=== PATIENT | female | born 1980 | race Caucasian/White ===

== ENCOUNTER 2018-09-12 11:59 | Inpatient (IN) | payer MEDICAID ==
[~2018-09-12] VITALS: Ht 157.5 cm; Wt 67.8 kg
[~2018-09-12 11:59] MED LIST: PREN1TAB17 PO
[2018-09-12 12:43] VITALS: BP 106/70; PULSE 94; RESP 18
[2018-09-12] MEDS ORDERED: OXYTOCIN 30 UNITS/LR 500 ML IV SCH ×2 (13:00)
[2018-09-12] MEDS ORDERED: OXYCODONE/ASPIRIN (4.88/325) TAB PO PRN (13:00)
[2018-09-12] MEDS ORDERED: OXYTOCIN 30 UNITS/LR 500 ML IV PRN (13:00)
[2018-09-12] MEDS ORDERED: METHYLERGONOVINE 0.2 MG INJ IM PRN (13:00)
[2018-09-12] MEDS ORDERED: BUTORPHANOL 2 MG INJ IV PRN (13:00)
[2018-09-12] MEDS ORDERED: MISOPROSTOL 200 MCG TAB PR PRN (13:00)
[2018-09-12] MEDS ORDERED: AMPICILLIN 2 GM/NS (PMX) 100 ML IV ONE ×2 (13:00→23:30)
[2018-09-12] MEDS ORDERED: LIDOCAINE 1% (MPF) 30 ML INJ INJ PRN (13:00)
[2018-09-12] MEDS ORDERED: BUTORPHANOL 1 MG INJ IV PRN (13:00)
[2018-09-12] MEDS ORDERED: CARBOPROST 250 MCG INJ IM PRN (13:00)
[2018-09-12] MEDS: LACTATED RINGER'S 1,000 ML IV SCH ×2 (14:32→22:15)
[2018-09-12] MEDS ORDERED: AMPICILLIN 1 GM/NS (PMX) 50 ML IV SCH (17:00)
--- NOTE | 2018-09-12 19:35 | PREOPHP ---
DATE OF ADMISSION: 09/12/2018 HISTORY OF PRESENT ILLNESS: Ms. Candelaria Walker is a 38-year-old 5, para 4, EDC 10/05/2018, intrauterine at 36 weeks and 5 days gestational age, was sent from clinic today for evaluation of cholestasis of . The patient has been complaining of generalized itching for the past 1 week with bile acid of 17.9. Her care took place at [facility]. PAST MEDICAL HISTORY: None. MEDICATIONS: vitamins. PAST SURGICAL HISTORY: None. OBSTETRICAL HISTORY: x4 vaginal delivery. GYNECOLOGIC HISTORY: 13, regular 3 to 4 days. Denies any sexually transmitted disease. Sexually active with 1 partner. SOCIAL HISTORY: Denies any smoking, drugs or alcohol. FAMILY HISTORY: None. REVIEW OF SYSTEMS: All within normal except history of present illness. PHYSICAL EXAMINATION: HEENT: Within normal. LUNGS: CTA bilateral. CARDIOVASCULAR: S1, S2. Regular rate, rhythm. ABDOMEN: Gravid, nontender. Negative CVA bilateral. EXTREMITIES: Negative. No calf tenderness. PELVIC: Vaginal exam is 2 cm dilated, 30% effaced, -3 station. heart tracing category 1. [place]: Occasional contractions. Estimated weight is 2466 grams. ASSESSMENT: Intrauterine at 36 weeks and 5 days' gestational age with cholestasis of . PLAN: After discussing the above evaluation with Dr. Nails, agrees to the delivery the patient. recommends to keep until 37 weeks and deliver, unless she has elevated liver enzymes fu liver enzymes Dictated By: ADRYAN HURLEY/YAJAIRA Conf#: [id number] DID#: [id number] MTDHill
[2018-09-12] MEDS: URSODIOL 300 MG CAP PO SCH (21:25)
[2018-09-12] MEDS: MISOPROSTOL 50 MCG CAPSULE PO PRN (22:40)
[2018-09-12] MEDS ORDERED: FAMOTIDINE 20 MG TAB PO PRN (23:30)
[2018-09-13] MEDS ORDERED: DEXTROSE 5%-LR 1,000 ML IV SCH (02:58)
[2018-09-13] MEDS: AMPICILLIN 1 GM/NS (PMX) 50 ML IV SCH ×4 (03:36→16:00)
[2018-09-13] MEDS: MISOPROSTOL 50 MCG CAPSULE PO PRN (04:27)
[2018-09-13] MEDS: LACTATED RINGER'S 1,000 ML IV SCH ×2 (06:46→09:42)
[2018-09-13] MEDS ORDERED: BETAMET NA PHOS/AC(6 MG/ML) 2 ML INJ SYG IM SCH (09:00)
[2018-09-13] MEDS: URSODIOL 300 MG CAP PO SCH ×2 (09:13→12:56)
[2018-09-13] MEDS ORDERED: OXYTOCIN 30 UNITS/LR 500 ML IV PRN ×3 (10:30→17:00)
--- NOTE | 2018-09-13 16:35 | LDN ---
Date/Time of Note Date/Time of Note DATE: 09/13/18 TIME: 16:31 Delivery Summary 09/13/2018 AROM done prer request of Primary OB attending who manged the patient. Clear fluid noted. Patient shortly after had Precipitous delivery called emergently to the Room due to significant maternal pushing, Baby was out by the time arrived and noted to be on the bed and nurses were suctioning the mouth and nose. Cord was clamped and cut. Baby was transferred to the warmer. Placenta delivered complete. Placenta evaluated and appeared to be intact. Fundus was firm at the end of the delivery. EBL 200 cc. Perineum evaluated no evidence of perineal laceration noted. Placenta was sent to pathology Weeks of Gestation 36 weeks and 6 days Placenta Delivered: Spontaneously Meconium: none Episiotomy: No Indication for episiotomy N/A Perineal laceration: 0 Laceration repair: No laceration noted Anesthesia type: Epidural Estimated blood loss: 200 Sponge & Needle done & correct: Yes All needle counts correct: Yes Any foreign bodies felt in the: No Delivery Information Sex Infant Sex: female Apgars 1 Minute: 9 5 Minute: 9 Suctioning Nose & mouth suctioned at francia: Yes Delee suction performed: Yes Umbilical Cord Umbilical cord with: 3 Vessels Cord presentations: no nuchal cord Cord Blood was obtained: Yes OLLIE CAPUTO MD Sep 13, 2018 16:35
[2018-09-13] MEDS ORDERED: OXYTOCIN 30 UNITS/LR 500 ML IV SCH ×2 (16:40→16:50)
--- NOTE | 2018-09-13 16:40 | PN ---
Date/Time of Note Date/Time of Note DATE: 09/13/18 TIME: 16:36 OB Subjective Subjective Subjective Late entry note. I was called at 8 AM to evaluate the patient requested by primary OB attending who was away due to vaginal bleeding. Attended to the patient bedside. Noted to have 150 cc q. BL on the chalks. Patient comfortable denies any symptoms. Patient undergoing induction of labor due to cholestasis of . Tracing reviewed and contractions every 1 minute noted on the monitor questionable for possible abruption. OB Objective Objective Objective General appearance: Alert and oriented x4 does not appear to be in any acute distress Abdomen: Soft, fundus consistent with gestational age Sterile vaginal examination: 2 cm/70/-3\dark old blood noted small amount About 120 cc of blood noted and the pads collected by RN previously Tracing: Category 1\ OB Assessment/Plan Other Assessment: IUP at 36 weeks and 6 days Undergoing induction due to cholestasis of , In early labor Vaginal bleeding, rule out abruption, . Tracing reassuring We will continue to monitor closely Due to gestational age less than 37 weeks and requirement for induction due to congestive , will start steroid while induction is in process If undelivered consider giving the second dose after 12 hours Continue expectant management Follow-up in labor curve Plan of care discussed with perinatologist, Jessica Marte who agreed with the plan. OLLIE CAPUTO MD Sep 13, 2018 16:39
--- NOTE | 2018-09-13 16:49 | QN ---
Documentation Comment delivery note a viable female 9/9 weigth pending placenta via cct intact no laceration ebl 200 ml no complication count correct ADRYAN MAYES MD Sep 13, 2018 16:49
[2018-09-13] MEDS ORDERED: HYDROCODONE/APAP (5/325) TAB PO PRN (17:00)
[2018-09-13] MEDS ORDERED: WITCH HAZEL/GLYCERIN PAD PR PRN ×2 (17:00)
[2018-09-13] MEDS ORDERED: CARBOPROST 250 MCG INJ IM PRN ×2 (17:00)
[2018-09-13] MEDS ORDERED: ONDANSETRON 4 MG INJ IV PRN ×2 (17:00)
[2018-09-13] MEDS ORDERED: METHYLERGONOVINE 0.2 MG TAB PO PRN (17:00)
[2018-09-13] MEDS ORDERED: LANOLIN HPA 1 PKT TOP PRN ×2 (17:00)
[2018-09-13] MEDS ORDERED: ZOLPIDEM 5 MG TAB PO PRN (17:00)
[2018-09-13] MEDS ORDERED: NACL 0.9% 3 ML SYG IV SCH ×2 (17:00)
[2018-09-13] MEDS ORDERED: DIPHENHYDRAMINE 25 MG CAP PO PRN (17:00)
[2018-09-13] MEDS ORDERED: BENZOCAINE 20% 56 ML SPRAY TOP PRN (17:00)
[2018-09-13] MEDS ORDERED: MISOPROSTOL 200 MCG TAB PR PRN ×2 (17:00)
[2018-09-13] MEDS ORDERED: METHYLERGONOVINE 0.2 MG INJ IM PRN ×2 (17:00)
[2018-09-13 18:40] VITALS: BP 110/58; PULSE 71; RESP 18
[2018-09-13 19:45] VITALS: BP 101/62; PULSE 62; RESP 18
[2018-09-13] MEDS: SENNA/DOCUSATE NA (8.6MG/50MG) TAB PO SCH (21:20)
[2018-09-14 04:38] VITALS: BP 99/67; PULSE 87; RESP 18
[2018-09-14 08:00] VITALS: BP 114/71; PULSE 69; RESP 18
[2018-09-14] MEDS: SENNA/DOCUSATE NA (8.6MG/50MG) TAB PO SCH ×2 (10:34→20:12)
--- NOTE | 2018-09-14 10:41 | PD.PPDC ---
CHOCOLATE DIPPER Discharge Instruction Condition [id number] Patient Condition: [id number] Good Diet Wenel6Ac Diet: Diyfq6c Resume Regular Diet Activity/Restrictions [id number] Activity: Yjgmr0s Normal Activity May Shower Fpadp6Lw Restrictions: Eodha1z No Exercising No Lifting No Driving No Sexual Activity Nothing in the Vagina No [place] No Tampons, douche Follow-up Follow-up with Physician: 3, Week/Weeks Return to clinic for [id number] OPTOMETRIC TECHNICIAN Instructions: [id number] Fever greater than 101 Chills Worsening abdominal pain Excessive Vaginal Bleeding More than 2 pads per hour Unable to tolerate diet [id number] OB Instructions: Rsmyt0l Breast Tenderness Depression Blurried Vision Headache Wophh6Mx Surgical Instructions: Btmpw4n Incisional Drainage Incisional Redness ADRYAN MAYES MD Sep 14, 2018 10:41
[2018-09-14 16:00] VITALS: BP 118/77; PULSE 74; RESP 18
[2018-09-14 19:30] VITALS: BP 115/77; PULSE 74; RESP 18
[2018-09-14] MEDS ORDERED: FAMOTIDINE 20 MG TAB PO SCH (21:00)
[2018-09-15 04:11] VITALS: BP 112/75; PULSE 73; RESP 18
[2018-09-15 08:00] VITALS: BP 105/81; PULSE 65; RESP 18
[2018-09-15] MEDS ORDERED: DIPHTH/TET/ACEL PERTUSS (ADULT) 0.5 ML VIAL IM* ONE (09:00)
[2018-09-15] MEDS ORDERED: MEASLES,MUMPS,RUBELLA VACCINE INJ SC* ONE (09:00)
[2018-09-15] MEDS ORDERED: VARICELLA VACCINE LIVE/PF 1,350 UNIT/0.5 ML ML SC* ONE (09:00)
[2018-09-15] MEDS: SENNA/DOCUSATE NA (8.6MG/50MG) TAB PO SCH (09:00)
--- NOTE | 2018-10-02 17:50 | DS ---
Date/Time of Note Date/Time of Note DATE: 10/02/18 TIME: 17:49 Obstetrical Discharge Record Final Diagnosis Final Diagnosis: delivered Other Final Diagnosis cholestasis of , ptl Vaginal Delivery Obstetrical Delivery: Spontaneous Complications Other (cholestasis of ) Condition on Discharge Physical Assessment Last Vitals: stable afebrile Voiding: Yes Bowel Movement: Yes Breast: Soft, non-tender, Filling Fundus: Firm Calf Tenderness: No Patient Condition: Fair ADRYAN MAYES MD Oct 02, 2018 17:50
== END 2018-09-15 14:20 | disposition home or self-care (01) | DRG 805 ==
LOC: OBT 11:59 → L-D 12:01 → OBT 12:13 → PP1 09-13 20:16
PROVIDERS: ADMIT Obstetrics & Gynecology; ATTEND Obstetrics & Gynecology
PROC: 4A1HXCZ Monitoring of Products of Conception, Cardiac Rate, External Approach (ICD-10-PCS; 2018-09-12)
PROC: 3E0P7GC Introduction of Other Therapeutic Substance into Female Reproductive, Via Natural or Artificial Opening (ICD-10-PCS; 2018-09-12)
PROC: 10E0XZZ Delivery of Products of Conception, External Approach (ICD-10-PCS; principal; 2018-09-13)
PROC: 10907ZC Drainage of Amniotic Fluid, Therapeutic from Products of Conception, Via Natural or Artificial Opening (ICD-10-PCS; 2018-09-13)
PROC: 3E0234Z Introduction of Serum, Toxoid and Vaccine into Muscle, Percutaneous Approach (ICD-10-PCS; 2018-09-14)
PROC: 3E0234Z Introduction of Serum, Toxoid and Vaccine into Muscle, Percutaneous Approach (ICD-10-PCS; 2018-09-15)
DX: O26.62 Liver and biliary tract disorders in childbirth (principal); K83.1 Obstruction of bile duct; Z37.0 Single live birth; Z3A.36 36 weeks gestation of pregnancy; Z23 Encounter for immunization
CPT/HCPCS: 76815; 76818; 80053; 85025; 85610; 85730; 86592; 86850; 86900; 86901; 88307; 90686; 90715; J0290; J0702; J2590; J7120; J7121

== ENCOUNTER 2018-12-30 10:15 | Day surgery (SDC) | payer MEDICAID ==
[2018-12-30] VITALS (13 sets, daily range): BP systolic 101–130; BP diastolic 65–78; PULSE 58–84; RESP 11–16; Ht 157.5 cm; Wt 63.5 kg
[~2018-12-30] VITALS: Ht 157.5 cm; Wt 63.5 kg
[~2018-12-30 10:15] MED LIST changes: +ACETAMINOPHEN 500 MG TAB PO ONE
[2018-12-30] MEDS ORDERED: BUPIVACAINE 0.25%/EPI (SDV) 30 ML INJ ONE (11:20)
--- NOTE | 2018-12-30 11:28 | PREAC ---
Date/Time of Note Date/Time of Note DATE: 12/30/18 TIME: 11:25 Anesthesia Eval and Record Evaluation Time Pre-Procedure Interview DATE: 12/30/18 TIME: 11:25 Age 38 Sex female NPO: 8 hrs Preoperative diagnosis elective sterilization Planned procedure Laparoscopic tubal ligation Past Medical History Past Medical History: None Surgery & Anesthesia Issues No known issue Meds Anticoagulation: No Beta Christian within 24 hr: No Reason Beta Christian not given: Pt. not on B-Christian Discontinued Reported Medications Vit-Iron Fumarate-FA ( Tablet) 1 Each Tablet, 1 TAB PO DAILY, TAB 07/14/14 Meds reviewed: Yes Allergies Coded Allergies: ibuprofen (Verified Allergy, Unknown, RASH, PRURITIS, 12/30/18) Allergies Reviewed: Yes Labs/Studies Labs Reviewed: Reviewed by anesthesiologist test: Negative Pre-procedure Exam Last vitals Vital Signs Date Temp Pulse Resp B/P (MAP) Pulse Ox O2 O2 Flow FiO2 Time Delivery Rate 12/30/18 97.5 63 16 130/78 97 Room Air 11:15 (95) Airway: Adequate mouth opening, Adequate thyromental dist Mallampati: Mallampati II Teeth: Normal Lung: Normal Heart: Normal ASA Physical Status ASA physical status: 1 Emergency: None Planned Anesthetic General/MAC: ETT Pre-operative Attestations Prior to commencing anesthesia and surgery, the patient was re-evaluated, there was verification of: *The patient's identity *The results of appropriate recent lab work and preoperative vital signs *The above evaluation not changing prior to induction *Anesthetic plan, risk benefits, alternative and complications discussed with patient/family; questions answered; patient/family understands, accepts and wishes to proceed. KONRAD LLANES Dec 30, 2018 11:28
[2018-12-30] MEDS ORDERED: DIPHENHYDRAMINE 50 MG INJ IV PRN (11:30)
[2018-12-30] MEDS ORDERED: morphine (1 MG/ML) 10ML SYRINGE IV PRN ×2 (11:30)
[2018-12-30] MEDS ORDERED: HYDROmorphONE 1 MG/5 ML IV SYRINGE IV PRN ×3 (11:30)
[2018-12-30] MEDS ORDERED: LABETALOL HCL 20MG INJ IV PRN (11:30)
[2018-12-30] MEDS ORDERED: ONDANSETRON 4 MG INJ IV PRN (11:30)
[2018-12-30] MEDS ORDERED: FENTAnyl 50 MCG/ML VIAL IV PRN ×2 (11:30)
[2018-12-30] MEDS ORDERED: OXYCODONE/ACETAMINOPHEN (5/325) TAB PO PRN ×2 (11:30)
[2018-12-30] MEDS ORDERED: MEPERIDINE 25 MG INJ IV PRN (11:30)
[2018-12-30] MEDS ORDERED: ALBUTEROL 0.083% (NEB) 2.5 MG/3 ML AMP HHN PRN (11:30)
[2018-12-30] MEDS ORDERED: ROCURONIUM 50 MG INJ ONE (11:36)
[2018-12-30] MEDS ORDERED: PROPOFOL 40 ML ONE (11:36)
[2018-12-30] MEDS ORDERED: LIDOCAINE 2% (SDV) 5 ML INJ ONE (11:36)
[2018-12-30] MEDS ORDERED: CEFAZOLIN 1 GM INJ ONE (11:36)
[2018-12-30] MEDS ORDERED: MIDAZOLAM 1 MG/ML 2 ML INJ ONE (11:37)
[2018-12-30] MEDS ORDERED: FENTAnyl 50 MCG/ML VIAL ONE (11:37)
[2018-12-30] MEDS ORDERED: BUPIVACAINE 0.25%/EPI (SDV) 30 ML INJ INJ ONE (12:00)
--- NOTE | 2018-12-30 12:24 | HP ---
Date/Time of Note Date/Time of Note DATE: 12/30/18 TIME: 12:22 Assessment/Plan VTE Prophylaxis Pharmacological prophylaxis: NA/contraindicated Pharm contraindication: low risk/ambulating Lines/Catheters IV Catheter Type (from Nrsg): Saline Lock Assessment/Plan Assessment/Plan Voluntary sterilization We will proceed with laparoscopic tubal ligation versus mini lap tubal leg Result Diagram: 12/30/18 1050 Results 24hrs Laboratory Tests Test 12/30/18 10:50 White Blood Count 7.0 # Red Blood Count 4.35 # Hemoglobin 12.9 # Hematocrit 38.6 # Mean Corpuscular Volume 88.7 Mean Corpuscular Hemoglobin 29.7 Mean Corpuscular Hemoglobin Concent 33.4 Red Cell Distribution Width 13.7 Platelet Count 242 # Mean Platelet Volume 11.3 H Immature Granulocytes % 0.300 Neutrophils % 67.0 Lymphocytes % 22.7 Monocytes % 8.0 Eosinophils % 1.7 Basophils % 0.3 Nucleated Red Blood Cells % 0.0 Immature Granulocytes # 0.020 Neutrophils # 4.7 Lymphocytes # 1.6 Monocytes # 0.6 Eosinophils # 0.1 Basophils # 0.0 Nucleated Red Blood Cells # 0.0 Prothrombin Time 13.5 Prothrombin Time Ratio 1.1 INR International Normalized Ratio 1.02 Activated Partial Thromboplast Time 33.2 HPI/ROS Admit Date/Time Admit Date/Time 12/30 2018 Hx of Present Illness 38-year-old female para 5 LMP 413 admitted for elective sterilization ROS Currently has no complaints Constitutional: no complaints, improved Eyes: no complaints ENT: no complaints Respiratory: no complaints Cardiovascular: no complaints Gastrointestinal: no complaints Genitourinary: no complaints Musculoskeletal: no complaints Skin: no complaints Neurologic: no complaints Endocrine: no complaints Lymphatic: no complaints Psychological: no complaints, nl mood/affect Immunologic: no complaints PMH/Family/Social Past Medical History Medical History: no pertinent history Medications Current Medications Morphine Sulfate (morphine (REC)) 2 mg PACU ORDER PRN IV MILD PAIN 1-3; Start 12/30/18 at 11:30; Stop 12/30/18 at 19:00 Morphine Sulfate (morphine (REC)) 4 mg PACU ORDER PRN IV MOD PAIN 4-6; Start 12/30/18 at 11:30; Stop 12/30/18 at 19:00 Hydromorphone HCl (Dilaudid) 0.2 mg PACU PRN IV MILD PAIN 1-3; Start 12/30/18 at 11:30; Stop 12/30/18 at 19:00 Hydromorphone HCl (Dilaudid) 0.4 mg PACU PRN IV MOD PAIN 4-6; Start 12/30/18 at 11:30; Stop 12/30/18 at 19:00 Hydromorphone HCl (Dilaudid) 0.6 mg PACU PRN IV SEVERE PAIN 7-10; Start 12/30/18 at 11:30; Stop 12/30/18 at 19:00 Fentanyl (Sublimaze) 25 mcg PACU ORDER PRN IV MILD PAIN 1-3; Start 12/30/18 at 11:30; Stop 12/30/18 at 19:00 Fentanyl (Sublimaze) 50 mcg PACU ORDER PRN IV MOD PAIN 4-6; Start 12/30/18 at 11:30; Stop 12/30/18 at 19:00 Oxycodone/ Acetaminophen (Percocet (5/ 325)) 1 tab PACU ORDER PRN PO .PAIN 1-5; Start 12/30/18 at 11:30; Stop 12/30/18 at 19:00 Oxycodone/ Acetaminophen (Percocet (5/ 325)) 2 tab PACU ORDER PRN PO .PAIN 6-10; Start 12/30/18 at 11:30; Stop 12/30/18 at 19:00 Ondansetron HCl (Zofran Inj) 4 mg PACU ORDER PRN IV NAUSEA/VOMITING; Start 12/30/18 at 11:30; Stop 12/30/18 at 19:00 Labetalol HCl (Labetalol) 5 mg PACU ORDER PRN IV HIGH BLOOD PRESSURE; Start 12/30/18 at 11:30; Stop 12/30/18 at 19:00 Albuterol (Proventil 0.083% (Neb)) 2.5 mg PACU ORDER PRN HHN .WHEEZING; Start 12/30/18 at 11:30; Stop 12/30/18 at 19:00 Meperidine HCl (Demerol) 25 mg PACU ORDER PRN IV .RIGORS; Start 12/30/18 at 11:30; Stop 12/30/18 at 19:00 Diphenhydramine HCl (Benadryl) 25 mg PACU ORDER PRN IV .PRURITUS; Start 12/30/18 at 11:30; Stop 12/30/18 at 19:00 Coded Allergies: ibuprofen (Verified Allergy, Unknown, RASH, PRURITIS, 12/30/18) Past Surgical History Past Surgical Hx: no surgical history Social History Alcohol Use: none Smoking Status: Never smoker Drug Use: none Exam/Review of Systems Vital Signs Vitals Vital Signs Date Temp Pulse Resp B/P (MAP) Pulse Ox O2 O2 Flow FiO2 Time Delivery Rate 12/30/18 97.5 63 16 130/78 97 Room Air 11:15 (95) Exam Exam 38-year-old female does not appear in any acute distress Constitutional: alert, oriented, well developed Psych: no complaints, nl mood/affect Head: normocephalic, atraumatic Eyes: nl conjunctiva, EOMI, nl lids, nl sclera, PERRL ENMT: nl external ears & nose, nl lips & teeth, nl nasal mucosa & septum Neck: supple, non-tender Respiratory: clear to auscultation, normal air movement Cardiovascular: regular rate and rhythm, nl pulses Gastrointestinal: soft, nl liver, spleen, non-tender Musculoskeletal: nl extremities to inspection Extremities: normal pulses Neurological: COGNOS ANALYST II-XII intact, nl mental status, nl speech, nl strength Skin: nl turgor; No rash or lesions Lymph: nl lymph nodes THEO ORNELAS MD Dec 30, 2018 12:24
[2018-12-30] MEDS ORDERED: FAMOTIDINE 20 MG INJ ONE (12:42)
[2018-12-30] MEDS ORDERED: PHENYLephrine (100 MCG/ML) 10ML SYG ONE (12:53)
[2018-12-30] MEDS ORDERED: SUGAMMADEX SODIUM 200 MG/2 ML VIAL IV ONE (13:03)
[2018-12-30] MEDS ORDERED: GLYCOPYRROLATE 0.4 MG INJ ONE (13:10)
[2018-12-30] MEDS ORDERED: NEOSTIGMINE 3 MG/3 ML SYRINGE ONE (13:10)
[2018-12-30] MEDS ORDERED: ACETAMINOPHEN 500 MG TAB PO STA (13:24)
--- NOTE | 2018-12-30 13:24 | OPR ---
Operative Report Planned Procedure Procedure date Dec 30, 2018 Procedure(s) Bilateral tubal fulguration via laparoscope Performed by see signature line Anesthesiologist: KONRAD LLANES Pre-procedure diagnosis Multiparity with desire for sterilization [id number] Anesthesia Type: Mdhni7i general Post-Procedure Post-procedure diagnosis Status post bilateral tubal fulguration Findings Live Baby [], Apgars [] and [], weight [], position [], [] presentation []cord. Estimated Blood Loss: minimal Specimen(s) none Grafts/Implant(s) none Complication(s) none Pt Condition post procedure: stable Disposition: PACU Procedure Description The patient was placed on the OR table in the supine position. General anesthesia was induced. The patient was turned into lithotomy position for vaginal and laparoscopic procedure specifically. Perineal, vaginal, and abdominal area were then prepped with Betadine and draped for a usual laparoscop ic procedure and a vaginal procedure. A Hinds catheter was then inserted into urinary bladder under aseptic condition in operating room and under satisfactory anesthesia, a small speculum was inserted into vagina. Anterior lip of the cervix was secured with a tenaculum. Cervix was brought down to operative field. It was progressively dilated to #6 [place]gar. A HUMI elevator was inserted into cervical canal and afterwards uterine cavity. After insufflation of the tube all the other instruments were removed from vaginal cavity. After changing gloves, turning to abdominal side, a small incision was placed just below belly button 0.5 cm in length. A 0.5 cm trocar was introduced inside the incision. The trocar was blunt and pointing toward the uterine dome. The trocar was easily inserted inside the abdominal. A laparoscope was then inserted into the abdominal cavity, making sure the correct cavity was entered. Intra-abdominal cavity was insufflated with CO2. Under direct visualization a small incision was made a 0.5 cm in length about 2 to 3 fingerbreadths above and parallel to the symphysis pubis. A 0.5 cm trocar was then introduced inside the incision. Under direct visualization the second probe was also inserted into abdominal cavity easily. The uterus and fallopian tubes were easily identified. Right fallopian tube was approached first and at least 5 cm of the tube was adequately fulgurated, making sure no live tissue was left in between. The same procedure was done on the left side. Serious care was taken to avoid bowel, bladder, or other intra-abdominal organ injury. At this point, procedure was terminated. The trocar incision sites from inside the abdomen on either side were observed. No bleeding was observed. After removing the laparoscope, the abdomen was desufflated to its normal position. Afterwards, all of the trocar sleeves were removed. Abdominal incisions were closed using leola. The HUMI was then discontinued. Also, Hinds was taken out. The patient was returned to supine position. Estimated blood loss was less than 5 mL. The patient tolerated the procedure very well and was transferred to postanesthesia recovery room in stable and good condition. THEO ORNELAS MD Dec 30, 2018 13:24
[2018-12-30] MEDS ORDERED: DOXYCYCLINE 100 MG TAB PO ONE (13:30)
[2018-12-30] MEDS ORDERED: BUTORPHANOL 2 MG INJ IM ONE (13:30)
--- NOTE | 2018-12-30 13:39 | PAC ---
Date/Time of Note Date/Time of Note DATE: 12/30/18 TIME: 13:38 Post-Anesthesia Notes Post-Anesthesia Note Last documented vital signs Vital Signs Date Temp Pulse Resp B/P (MAP) Pulse Ox O2 O2 Flow FiO2 Time Delivery Rate 12/30/18 97.5 98 63 89 16 16 130/78 97 100 Room 11:15 133 (95) 111/ Air face 3 76 mask 6L Activity: WNL Respiratory function: WNL Cardiovascular function: WNL Mental status: Baseline Pain reasonably controlled: Yes Hydration appropriate: Yes Nausea/Vomiting absent: Yes KONRAD LLANES Dec 30, 2018 13:39
== END 2018-12-30 15:51 | disposition home or self-care (01) ==
LOC: SDS 10:15
PROVIDERS: ATTEND Obstetrics & Gynecology
DX: Z30.2 Encounter for sterilization (principal)
CPT/HCPCS: 58670; 84703; 85025; 85610; 85730; J0595; J0690; J1170; J2250; J2405; J2710; J3010; Z7512; Z7610; J2370